=== PATIENT | female | born 1955 | race Caucasian/White ===

== ENCOUNTER 2018-10-17 12:17 | Emergency (ER) | payer BC, MEDICARE ==
--- NOTE | 2018-10-17 12:41 | EDM.PDOC ---
ED HPI GENERAL MEDICAL PROBLEM - General Stated Complaint: WEAKNESS Time Seen by Provider: 10/17/18 12:34 Source of Information: Reports: Patient, Family History Limitations: Reports: No Limitations - History of Present Illness INITIAL COMMENTS - FREE TEXT/NARRATIVE: 63 years old w f with ESRD, came to the ed with her family because Pt does not feel "right". Pt was due for hemodialyis today, did not go because she did not feel well. No N/V/D. No C/P no Dizziness. No other acute medical issues. Pt was not able to describe her symptoms, poor historian. BP 127/49 RR 22 Temp 36.1 Pulse ox 99% on RA Onset Date: 10/16/18 Onset Time: 08:00 Duration: Hour(s):, Intermittent Location: Reports: Generalized Quality: Reports: Other (Not feeling well) Improves with: Reports: None Worsens with: Reports: None Associated Symptoms: Reports: No Other Symptoms - Related Data Allergies Allergy/AdvReac Type Severity Reaction Status Date / Time amoxicillin Allergy Itching Verified 10/17/18 13:00 chlorophyllin [From Panafil] Allergy Rash Verified 10/17/18 13:00 dextrose 5 % in water Allergy Rash Verified 10/17/18 13:00 [From Zyvox] doxycycline Allergy Itching Verified 10/17/18 13:00 lanolin Allergy Other Verified 10/17/18 13:00 linezolid [From Zyvox] Allergy Rash Verified 10/17/18 13:00 NSAIDS (Non-Steroidal Allergy Other Verified 10/17/18 13:00 Anti-Inflamma papain [From Panafil] Allergy Rash Verified 10/17/18 13:00 petrolatum,white Allergy Rash Verified 10/17/18 13:01 [From Vaseline] tigecycline Allergy Itching Verified 10/17/18 13:01 urea [From Panafil] Allergy Rash Verified 10/17/18 13:00 Home Meds: Home Meds .Resveratrol 1 cap PO DAILY 10/17/18 [History] Atenolol [Tenormin] 25 mg PO BEDTIME 10/17/18 [History] Calcium Acetate [PhosLo] 3 cap PO TID 10/17/18 [History] Ciprofloxacin HCl [Cipro] 500 mg PO DAILY #10 tablet 10/17/18 [Rx] Furosemide 80 mg PO BID 10/17/18 [History] Gabapentin [Neurontin] 200 mg PO BEDTIME 10/17/18 [History] Insulin Aspart [NovoLOG] 12 unit SQ DAILY 10/17/18 [History] Insulin Glarg,Human.Rec.Analog [Lantus] 7 - 10 unit SUBCUT TID 10/17/18 [History ] Insulin Glarg,Human.Rec.Analog [Lantus] 8 unit SQ BEDTIME 10/17/18 [History] Lisinopril 2.5 mg PO DAILY 10/17/18 [History] Lutein/Minerals/Vit A,C & E [Ocuvite] 1 tab PO DAILY 10/17/18 [History] Simvastatin 20 mg PO BEDTIME 10/17/18 [History] Ubidecarenone [Coenzyme Q-10] 30 mg PO DAILY 10/17/18 [History] amLODIPine Besylate [Amlodipine Besylate] 5 mg PO DAILY 10/17/18 [History] ED ROS GENERAL - Review of Systems Review Of Systems: See Below Constitutional: Reports: Weakness, Decreased Appetite HEENT: Reports: No Symptoms, Dental Pain Respiratory: Reports: No Symptoms Cardiovascular: Reports: No Symptoms Endocrine: Reports: No Symptoms GI/Abdominal: Reports: No Symptoms : Reports: Dysuria Musculoskeletal: Reports: No Symptoms Skin: Reports: No Symptoms Neurological: Reports: No Symptoms Psychiatric: Reports: No Symptoms Hematologic/Lymphatic: Reports: No Symptoms Immunologic: Reports: No Symptoms ED EXAM, GENERAL - Physical Exam Exam: See Below Exam Limited By: No Limitations General Appearance: Alert, WD/WN, Mild Distress, Obese Eye Exam: Bilateral Eye: Normal Inspection Ears: Normal External Exam Ear Exam: Bilateral Ear: Auricle Normal Nose: Normal Inspection, Normal Mucosa, No Blood Throat/Mouth: Normal Inspection, Normal Lips, Normal Voice, No Airway Compromise , Other (poor dentition) Head: Atraumatic, Normocephalic Neck: Normal Inspection, Supple, Non-Tender, Full Range of Motion Respiratory/Chest: No Respiratory Distress, Lungs Clear, Normal Breath Sounds, No Accessory Muscle Use, Chest Non-Tender Cardiovascular: Normal Peripheral Pulses, Regular Rate, Rhythm, No Edema, No Gallop, No JVD, No Murmur, No Rub Peripheral Pulses: 1+: Brachial (R) GI/Abdominal: Normal Bowel Sounds, Soft, Non-Tender, No Organomegaly, No Abnormal Bruit, No Mass, Pelvis Stable (Female) Exam: Deferred Rectal (Female) Exam: Deferred Back Exam: Normal Inspection, Full Range of Motion Extremities: Normal Inspection, Normal Range of Motion, Non-Tender, No Pedal Edema, Normal Capillary Refill Neurological: Alert, Oriented, CN II-XII Intact, Normal Cognition, Normal Gait, No Motor/Sensory Deficits Psychiatric: Normal Affect, Normal Mood Skin Exam: Warm, Dry, Intact, Normal Color, No Rash Lymphatic: No Adenopathy EKG INTERPRETATION EKG Date: 10/17/18 Time: 12:55 Rhythm: NSR Rate (Beats/Min): 61 [place]: Normal P-Wave: Present QRS: Normal ST-T: Normal QT: Normal Comparison: NA - No Prior EKG Course - Vital Signs Text/Narrative:: 63 years old w f with ESRD, came to the ed with her family because Pt does not feel "right". Pt was due for hemodialyis today, did not go because she did not feel well. No N/V/D. No C/P no Dizziness. No other acute medical issues. Pt was not able to describe her symptoms, poor historian. BP 127/49 RR 22 Temp 36.1 Pulse ox 99% on RA PE: WNWD W F in NAD, poor dentition, Dysuria Labs: CBC, BMP nl except GFR is 10 Cr. 4.6 BUN 48 Glc 205 WBC 16.7 no left shift Hgb 9.7. UA pos for uti Impression: ESRD,UTI, Anemia Rx Cipro Plan: D/C with instructions Last Recorded V/S: Last Vital Signs Temp 36.9 C 10/17/18 15:00 Pulse 63 10/17/18 15:00 Resp 18 10/17/18 15:00 BP 121/57 L 10/17/18 15:00 Pulse Ox 96 10/17/18 15:00 - Orders/Labs/Meds Orders: Active Orders 24 hr Category Date Time Status CULTURE URINE [RM] Stat Lab 10/17/18 14:00 Received EKG 12 Lead [EK] Routine Ther 10/17/18 12:40 Ordered Labs: Laboratory Tests 10/17/18 10/17/18 10/17/18 Range/Units 12:50 12:50 12:50 WBC 16.9 H (4.5-12.0) X10-3/uL RBC 3.47 (3.23-5.20) x10(6)uL Hgb 9.7 L (11.5-15.5) g/dL Hct 29.9 L (30.0-51.3) % MCV 86.3 (80-96) fL MCH 28.1 (27.7-33.6) pg MCHC 32.6 (32.2-35.4) g/dL RDW 17.8 H (11.5-15.5) % Plt Count 152 (125-369) X10(3)uL MPV 9.0 (7.4-10.4) fL Add Manual Diff Yes Neutrophils % (Manual) 91 H (46-82) % Lymphocytes % (Manual) 7 L (13-37) % Monocytes % (Manual) 2 L (4-12) % Anisocytosis Few Ovalocytes Few PT 12.0 H (8.7-11.1) INR 1.24 H (0.89-1.13) Sodium 136 (135-145) mmol/L Potassium 4.1 (3.5-5.3) mmol/L Chloride 95 L (100-110) mmol/L Carbon Dioxide 31 (21-32) mmol/L BUN 48 H (7-18) mg/dL Creatinine 4.6 H* (0.55-1.02) mg/dL Est Cr Clr Drug Dosing TNP Estimated GFR (MDRD) 10 L (>60) BUN/Creatinine Ratio 10.4 (9-20) Glucose 205 H (80-116) mg/dL Calcium 9.4 (8.6-10.2) mg/dL Urine Color (YELLOW) Urine Appearance (CLEAR) Urine pH (5.0-6.5) Ur Specific [place] (1.010-1.025) Urine Protein (NEGATIVE) mg/dL Urine Glucose (UA) (NEGATIVE) mg/dL Urine Ketones (NEGATIVE) mg/dL Urine Occult Blood (NEGATIVE) Urine Nitrite (NEGATIVE) Urine Bilirubin (NEGATIVE) Urine Urobilinogen (NEGATIVE) mg/dL Ur Leukocyte Esterase (NEGATIVE) Urine RBC (0) Urine WBC (0) Ur Squamous Epith Cells (NS,R,O) Urine Bacteria (NS) 10/17/18 Range/Units 14:00 WBC (4.5-12.0) X10-3/uL RBC (3.23-5.20) x10(6)uL Hgb (11.5-15.5) g/dL Hct (30.0-51.3) % MCV (80-96) fL MCH (27.7-33.6) pg MCHC (32.2-35.4) g/dL RDW (11.5-15.5) % Plt Count (125-369) X10(3)uL MPV (7.4-10.4) fL Add Manual Diff Neutrophils % (Manual) (46-82) % Lymphocytes % (Manual) (13-37) % Monocytes % (Manual) (4-12) % Anisocytosis Ovalocytes PT (8.7-11.1) INR (0.89-1.13) Sodium (135-145) mmol/L Potassium (3.5-5.3) mmol/L Chloride (100-110) mmol/L Carbon Dioxide (21-32) mmol/L BUN (7-18) mg/dL Creatinine (0.55-1.02) mg/dL Est Cr Clr Drug Dosing Estimated GFR (MDRD) (>60) BUN/Creatinine Ratio (9-20) Glucose (80-116) mg/dL Calcium (8.6-10.2) mg/dL Urine Color Yellow (YELLOW) Urine Appearance Slightly cloudy (CLEAR) Urine pH 5.0 (5.0-6.5) Ur Specific [place] 1.025 (1.010-1.025) Urine Protein 100 H (NEGATIVE) mg/dL Urine Glucose (UA) Normal (NEGATIVE) mg/dL Urine Ketones Negative (NEGATIVE) mg/dL Urine Occult Blood Negative (NEGATIVE) Urine Nitrite Negative (NEGATIVE) Urine Bilirubin Small H (NEGATIVE) Urine Urobilinogen 1 H (NEGATIVE) mg/dL Ur Leukocyte Esterase Small H (NEGATIVE) Urine RBC 0-5 (0) Urine WBC 5-10 (0) Ur Squamous Epith Cells Moderate H (NS,R,O) Urine Bacteria Moderate H (NS) Meds: Medications Discontinued Medications Generic Name Dose Route Start Last Admin Trade Name Freq PRN Reason Stop Dose Admin Calcium Acetate 2,001 mg 10/17/18 14:45 10/17/18 14:53 Phoslo PO 10/17/18 14:46 2,001 mg ONETIME ONE Administration Ciprofloxacin 500 mg 10/17/18 14:22 10/17/18 14:53 Ciprofloxacin Hcl PO 10/17/18 14:23 500 mg ONETIME ONE Administration Departure - Departure Time of Disposition: 14:28 Disposition: Home, Self-Care 01 Condition: Good Clinical Impression: ESRD (end stage renal disease) on dialysis UTI (urinary tract infection) Qualifiers: Urinary tract infection type: acute cystitis Hematuria presence: without hematuria Qualified Code(s): N30.00 - Acute cystitis without hematuria - Discharge Information Prescriptions: Ciprofloxacin HCl [Cipro] 500 mg PO DAILY #10 tablet Instructions: Urinary Tract Infection, Adult Referrals: PCP,Not In Area [Primary Care Provider] - Forms: ED Department Discharge Additional Instructions: please take the medication once daily, please f/u with your PMD, come back if your symptoms get worse acutely - My Orders Last 24 Hours: My Active Orders 10/17/18 12:40 EKG 12 Lead [EK] Routine 10/17/18 14:00 CULTURE URINE [RM] Stat - Assessment/Plan Last 24 Hours: My Active Orders 10/17/18 12:40 EKG 12 Lead [EK] Routine 10/17/18 14:00 CULTURE URINE [RM] Stat
[2018-10-17] MEDS: Calcium Acetate 667 MG Cap PO ONE (14:53)
[2018-10-17] MEDS: Ciprofloxacin 500 MG Tab PO ONE (14:53)
== END 2018-10-17 15:12 | disposition home or self-care (01) ==
LOC: FB.ED 12:17
DX: N30.00 Acute cystitis without hematuria (principal); N18.6 End stage renal disease; D63.1 Anemia in chronic kidney disease; Z99.2 Dependence on renal dialysis; Z79.899 Other long term (current) drug therapy; Z79.4 Long term (current) use of insulin; Z88.1 Allergy status to other antibiotic agents; Z88.8 Allergy status to other drugs, medicaments and biological substances
CPT/HCPCS: 36415; 80048; 81001; 85025; 85610; 87086; 87088; 87186; 93005; 99285; A9270

== ENCOUNTER 2019-06-15 15:19 | Emergency (ER) | payer BC, MEDICARE ==
--- NOTE | 2019-06-15 16:01 | EDM.PDOC ---
ED HPI GENERAL MEDICAL PROBLEM - General Time Seen by Provider: 06/15/19 15:58 Source of Information: Reports: Patient History Limitations: Reports: No Limitations - History of Present Illness INITIAL COMMENTS - FREE TEXT/NARRATIVE: 63-year-old female who reports that for about the past 1-1/2 weeks she has just not been feeling well. She tells me that her initial symptoms were that she felt weak and somewhat dizzy with a cough and tightness in her chest. This tightness in her chest and what she reports as "irritation in chest and bronchial tubes" is a persistent feeling that waxes and wanes but does not completely go away. It is associated with a cough that is nonproductive and somewhat hacking. She has felt weak and dizzy. She does have chronic renal failure and she is on hemodialysis on Mondays and Fridays. The her dialysis on Wednesday was cut somewhat short and she did not receive all of her blood back after the dialysis. She apparently also had a short run the Wednesday before because she "appeared pale to them". She reports she feels quite fatigued and is not able to do her normal activities. 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 She has had no fevers. She has had no chills. She does still urinate and has had no dysuria. She feels somewhat short of breath. She has chronic pains in her shoulders, arms and legs and she rates that as a 4/10 at this point. It is an aching pain. She has no chest pain. And she would not rate the tightness in her chest as anything. She has had decreased appetite. She has had no nausea or vomiting. There are no other associated signs or symptoms. There are no other modifying factors. Onset: Other (1 1/2 weeks) Duration: Getting Worse Location: Reports: Other (As above) Quality: Reports: Ache, Other (Tightness) Severity: Moderate Improves with: Reports: Rest Worsens with: Reports: Other (Activity. Coughing.) Treatments [employer]CH[employer] SU[employer] ASSOCIATE: Reports: Other (see below) (Nothing) headache Pain Score (Numeric/FACES): 3 - Related Data Allergies Allergy/AdvReac Type Severity Reaction Status Date / Time amoxicillin Allergy Itching Verified 06/15/19 16:03 chlorophyllin [From Panafil] Allergy Rash Verified 06/15/19 16:03 dextrose 5 % in water Allergy Rash Verified 06/15/19 16:03 [From Zyvox] doxycycline Allergy Itching Verified 06/15/19 16:03 ibuprofen Allergy Acid Reflux Verified 06/15/19 17:56 lanolin Allergy Other Verified 06/15/19 16:03 linezolid [From Zyvox] Allergy Rash Verified 06/15/19 16:03 papain [From Panafil] Allergy Rash Verified 06/15/19 16:03 petrolatum,white Allergy Rash Verified 06/15/19 16:03 [From Vaseline] tigecycline Allergy Itching Verified 06/15/19 16:03 urea [From Panafil] Allergy Rash Verified 06/15/19 16:03 Home Meds: Home Meds Calcium Acetate [PhosLo] 3 cap PO TID 10/17/18 [History] Furosemide 80 mg PO BID 10/17/18 [History] Gabapentin [Neurontin] 100 mg PO BEDTIME 10/17/18 [History] Insulin Aspart [NovoLOG] 7 - 10 unit SQ ASDIRECTED PRN 10/17/18 [History] Insulin Glarg,Human.Rec.Analog [Lantus] 8 unit SQ BEDTIME 10/17/18 [History] Insulin Glarg,Human.Rec.Analog [Lantus] 12 unit SUBCUT WITHBREAKFAST 10/17/18 [ History] Lisinopril 2.5 mg PO DAILY 10/17/18 [History] Simvastatin 20 mg PO BEDTIME 10/17/18 [History] Ubidecarenone [Coenzyme Q-10] 30 mg PO DAILY 10/17/18 [History] amLODIPine Besylate [Amlodipine Besylate] 5 mg PO DAILY 10/17/18 [History] Past Medical History HEENT History: Reports: Cataract, Impaired Vision, Sinusitis, Other (See Below) Other HEENT History: posterior vitrous detachment left, Cardiovascular History: Reports: Heart Failure, High Cholesterol, Hypertension, PVD Other Cardiovascular History: extremety edema (chronic) Respiratory History: Reports: Sleep Apnea Gastrointestinal History: Reports: GERD, PUD, Other (See Below) Other Gastrointestinal History: c diff Genitourinary History: Reports: Chronic Renal Insuffiency, Dialysis Musculoskeletal History: Reports: Osteoarthritis, Other (See Below) Other Musculoskeletal History: osteomylitis, trigger finger Neurological History: Reports: Neuropathy, Diabetic, Neuropathy, Peripheral Endocrine/Metabolic History: Reports: Diabetes, Type II, Obesity/BMI 30+ Hematologic History: Reports: Anemia, Iron Deficiency - Past Surgical History HEENT Surgical History: Reports: Eye Surgery GI Surgical History: Reports: Colonoscopy, EGD Musculoskeletal Surgical History: Reports: Amputation, Other (See Below) Other Musculoskeletal Surgeries/Procedures:: multiple foot surgeries, debridements of ulcers, osteomyelitis, toes amputatoins. Trigger finger repairs in both hands. Other Surgical History Comment: Angioplasty with stents placed in her legs. Social & Family History - Tobacco Use Smoking Status *Q: Never Smoker - Caffeine Use Caffeine Use: Reports: None - Alcohol Use Alcohol Use History: No ED ROS GENERAL - Review of Systems Review Of Systems: See Below Constitutional: Reports: Malaise, Weakness, Fatigue, Decreased Appetite HEENT: Reports: No Symptoms Respiratory: Reports: Shortness of Breath Cardiovascular: Reports: Dyspnea on Exertion, Lightheadedness, Other (Tightness in her chest) GI/Abdominal: Reports: No Symptoms : Reports: No Symptoms, Other (She still urinates) Musculoskeletal: Reports: Other (Chronic pain in multiple joints. Leg swelling that comes and goes.) Skin: Reports: No Symptoms Neurological: Reports: Dizziness Hematologic/Lymphatic: Reports: No Symptoms Immunologic: Reports: No Symptoms ED EXAM, GENERAL - Physical Exam Exam: See Below Exam Limited By: No Limitations General Appearance: Alert, Mild Distress, Obese Eye Exam: Bilateral Eye: EOMI, Normal Inspection, PERRL Ears: Normal External Exam Ear Exam: Bilateral Ear: Auricle Normal Nose: Normal Inspection, Normal Mucosa, No Blood Throat/Mouth: Normal Inspection, Normal Lips, Normal Voice, No Airway Compromise Head: Atraumatic, Normocephalic Neck: Normal Inspection, Supple, Non-Tender, Full Range of Motion Respiratory/Chest: No Respiratory Distress, Lungs Clear, Normal Breath Sounds, No Accessory Muscle Use, Chest Non-Tender Cardiovascular: Normal Peripheral Pulses, Regular Rate, Rhythm, No JVD Peripheral Pulses: 2+: Radial (L), Radial (R) GI/Abdominal: Normal Bowel Sounds, Soft, Non-Tender, Other (Protuberant) Back Exam: Normal Inspection Extremities: Normal Range of Motion, Normal Capillary Refill, Other (Dressings on both feet.) Neurological: Alert, Oriented, CN II-XII Intact, Normal Cognition, No Motor/ Sensory Deficits Skin Exam: Warm, Dry, Normal Color, No Rash EKG INTERPRETATION EKG Date: 06/15/19 Time: 15:46 Rhythm: NSR Rate (Beats/Min): 72 [place]: Normal P-Wave: Present QRS: Other (Widened) ST-T: Other (Lateral and inferior T-wave flattening. Poor R-wave progression.) QT: Prolonged (Prolonged QTC.) Comparison: No Change (EKG is really unchanged from an EKG performed on 10/2018. ) Course - Vital Signs Last Recorded V/S: Last Vital Signs Temp 36.6 C 06/15/19 15:20 Pulse 76 06/15/19 15:20 Resp 17 06/15/19 15:20 BP 120/62 06/15/19 17:58 Pulse Ox 92 L 06/15/19 17:51 - Orders/Labs/Meds Orders: Active Orders 24 hr Category Date Time Status Oxygen Therapy Adult [Oxygen Therapy, ED] [RC] Care 06/15/19 17:31 Active ASDIRECTED Peripheral IV Insertion Adult [OM.PC] Routine Oth 06/15/19 16:27 Ordered EKG 12 Lead [EK] Routine Ther 06/15/19 17:06 Ordered Labs: Laboratory Tests 06/15/19 06/15/19 06/15/19 Range/Units 16:35 16:35 16:35 WBC 6.3 (4.5-12.0) X10-3/uL RBC 3.31 (3.23-5.20) x10(6)uL Hgb 9.7 L (11.5-15.5) g/dL Hct 30.1 (30.0-51.3) % MCV 91.1 (80-96) fL MCH 29.4 (27.7-33.6) pg MCHC 32.3 (32.2-35.4) g/dL RDW 20.7 H (11.5-15.5) % Plt Count 162 (125-369) X10(3)uL MPV 9.4 (7.4-10.4) fL Neut % (Auto) 74.0 (46-82) % Lymph % (Auto) 15.2 (13-37) % [place] % (Auto) 7.6 (4-12) % Eos % (Auto) 3 (1.0-5.0) % Baso % (Auto) 1 (0-2) % Neut # (Auto) 4.6 (1.6-8.3) # Lymph # (Auto) 1.0 (0.6-5.0) # [place] # (Auto) 0.5 (0.0-1.3) # Eos # (Auto) 0.2 (0.0-0.8) # Baso # (Auto) 0.0 (0.0-0.2) # Sodium 139 (135-145) mmol/L Potassium 4.8 (3.5-5.3) mmol/L Chloride 96 L (100-110) mmol/L Carbon Dioxide 34 H (21-32) mmol/L BUN 62 H D (7-18) mg/dL Creatinine 8.5 H* (0.55-1.02) mg/dL Est Cr Clr Drug Dosing 6.50 mL/min Estimated GFR (MDRD) 5 L (>60) BUN/Creatinine Ratio 7.3 L (9-20) Glucose 191 H (80-116) mg/dL Calcium 9.6 (8.6-10.2) mg/dL Magnesium 2.8 H (1.8-2.5) mg/dL Total Bilirubin 0.6 (0.1-1.3) mg/dL AST 15 (5-25) IU/L ALT 17 (12-36) U/L Alkaline Phosphatase 58 (56-112) IU/L Troponin I 0.185 H* (<0.017-0.056) ng/mL C-Reactive Protein 0.7 (0.5-0.9) mg/dL Total Protein 7.2 (6.0-8.0) g/dL Albumin 3.2 (3.2-4.6) g/dL Globulin 4.0 g/dL Albumin/Globulin Ratio 0.8 Meds: Medications Discontinued Medications Generic Name Dose Route Start Last Admin Trade Name Freq PRN Reason Stop Dose Admin Aspirin 324 mg 06/15/19 17:38 06/15/19 17:53 Aspirin PO 06/15/19 17:39 324 mg ONETIME ONE Administration Nitroglycerin 0.4 mg 06/15/19 17:30 06/15/19 17:58 Nitrostat SL 0.4 mg Q5M PRN Administration Chest Pain Sodium Chloride 10 ml 06/15/19 16:27 06/15/19 17:00 Saline Flush FLUSH 10 ml ASDIRECTED PRN Administration Keep Vein Open - Radiology Interpretation Free Text/Narrative:: Portable chest x-ray shows increase pulmonary vascularity/fluid overload/CHF. - Re-Assessments/Exams Free Text/Narrative Re-Assessment/Exam: 06/15/19 17:50: Patient with evidence of fluid overload/CHF with positive chest x-ray, borderline O2 sats at times, some history of problems at dialysis over the past 2 times, chest pain with some difficulty breathing and cough which has been worsening and with elevated troponin. She will need admission and she will need cares which are not available at [facility] (cardiology and nephrology and probable dialysis). I discussed this with the patient and she would prefer that I discussed her case with the doctors at [facility] in [place]. She is in agreement with the plans for transfer. 06/15/19 18:15: I discussed the patient's case with Dr. Storey, hospitalist at [facility] in [place], and he has agreed to accept the patient in transfer. The patient be transferred via ambulance to [facility] in [place] for direct admission. The patient has been placed on oxygen at 2 L/m via nasal cannula and she has been given aspirin 324 mg by mouth. She was given nitroglycerin sublingual as a trial with no change in her chest tightness. Departure - Departure Time of Disposition: 18:15 Disposition: DC/Tfer to Acute Hospital 02 Condition: Fair (Stable) Clinical Impression: Elevated troponin I level Chest pain Qualifiers: Chest pain type: unspecified Qualified Code(s): R07.9 - Chest pain, unspecified Fluid overload Qualifiers: Hypervolemia type: unspecified Qualified Code(s): E87.70 - Fluid overload, unspecified - Discharge Information Referrals: PCP,Not In Area [Primary Care Provider] - Forms: ED Department Discharge - My Orders Last 24 Hours: My Active Orders 06/15/19 16:27 Peripheral IV Insertion Adult [OM.PC] Routine 06/15/19 17:06 EKG 12 Lead [EK] Routine 06/15/19 17:31 Oxygen Therapy Adult [Oxygen Therapy, ED] [RC] ASDIRECTED - Assessment/Plan Last 24 Hours: My Active Orders 06/15/19 16:27 Peripheral IV Insertion Adult [OM.PC] Routine 06/15/19 17:06 EKG 12 Lead [EK] Routine 06/15/19 17:31 Oxygen Therapy Adult [Oxygen Therapy, ED] [RC] ASDIRECTED
[2019-06-15] MEDS ORDERED: Sodium Chloride 0.9% 10 ML Syringe FLUSH PRN (16:27)
[2019-06-15] MEDS ORDERED: Nitroglycerin 0.4 MG Tab.SL SL PRN (17:30)
[2019-06-15] MEDS ORDERED: Aspirin 81 MG Tab.Chew PO ONE (17:38)
--- NOTE | 2019-06-16 08:33 | CR ---
INDICATION: Cough, chest tightness times two days. CHEST: An AP portable upright view of the chest was obtained 06/15/19 - no comparisons. Th heart appears somewhat enlarged. There is some calcification in the arch of the aorta with mild tortuosity. Overlying EKG leads are noted. Pulmonary vasculature was prominent and indistinct, suggesting CHF. Interstitial markings are heavy, suggesting interstitial lung edema. Some linear densities at the lung bases may be atelectatic in nature and/or fibrotic. A similar finding is noted in the left lower middle lung field. There is evidence of exogenous obesity. IMPRESSION: ASHD, cardiomegaly, CHF, and interstitial lung edema. MTDD
== END 2019-06-15 18:15 ==
LOC: FB.ED 15:19
DX: R07.9 Chest pain, unspecified (principal); E87.70 Fluid overload, unspecified; R79.89 Other specified abnormal findings of blood chemistry; E11.22 Type 2 diabetes mellitus with diabetic chronic kidney disease; E11.42 Type 2 diabetes mellitus with diabetic polyneuropathy; I13.0 Hypertensive heart and chronic kidney disease with heart failure and stage 1 through stage 4 chronic kidney disease, or unspecified chronic kidney disease; N18.9 Chronic kidney disease, unspecified; I50.9 Heart failure, unspecified; E78.00 Pure hypercholesterolemia, unspecified; M19.90 Unspecified osteoarthritis, unspecified site; E66.9 Obesity, unspecified; Z68.41 Body mass index [BMI] 40.0-44.9, adult; Z86.2 Personal history of diseases of the blood and blood-forming organs and certain disorders involving the immune mechanism; Z88.1 Allergy status to other antibiotic agents; Z88.8 Allergy status to other drugs, medicaments and biological substances; Z91.048 Other nonmedicinal substance allergy status; Z79.4 Long term (current) use of insulin; Z79.899 Other long term (current) drug therapy
CPT/HCPCS: 36415; 71045; 80053; 83735; 84484; 85025; 86140; 93005; 99285-25; A9270-GY